=== PATIENT | female | born 1985 | race Caucasian/White ===

== ENCOUNTER 2020-05-09 18:00 | Inpatient (IN) ==
[2020-05-10] MEDS ORDERED: Azithromycin 500 MG in 0.9 % Sodium Chloride 250 ML IVPB ONE (09:17)
[2020-05-10] MEDS ORDERED: Famotidine 20 MG/2 ML VIAL IVP PRN (09:17)
[2020-05-10] MEDS ORDERED: Ondansetron 4 MG/2 ML VIAL IVP PRN (09:17)
[2020-05-10] MEDS ORDERED: *HR* FentaNYL (PF) 100 MCG/2 ML VIAL IVP PRN (09:17)
[2020-05-10] MEDS ORDERED: Lidocaine 1% 20 ML MDV ID PRN (09:17)
[2020-05-10] MEDS ORDERED: Metoclopramide 10 MG/2 ML VIAL IVP PRN (09:17)
[2020-05-10] MEDS ORDERED: Naloxone 0.4 MG/ML INJ IVP PRN (09:17)
[2020-05-10] MEDS ORDERED: miSOPROStoL 25 MCG TABLET VG PRN (09:23)
[2020-05-10] MEDS ORDERED: Ringers Solution, Lactated 1,000 ML IVC SCH (09:30)
[2020-05-10 10:10] LABS: Basophils % 0.2 %; Eosinophils % 0.7 %; Hematocrit 32.2 % (35.3-44.9); Hemoglobin 10.3 g/dL (11.5-15.4); Immature Granulocytes % 0.5 % (0-4); Lymphocytes % 16.9 %; Mean Corpuscular Hemoglobin 26.3 pg (28.0-33.3); Mean Corpuscular Volume 82.4 fL (83.0-100.0); Mean Platelet Volume 9.5 fL (9.4-12.4); Monocytes # 0.4 K/mcL (0.0-1.3); Monocytes % 6.6 %; Neutrophils # 4.4 K/mcL (1.6-8.9); Platelet Count 290 K/mcL (140-400); Red Blood Count 3.91 M/mcL (3.82-4.97); Red Cell Distribution Width 14.4 % (11.5-14.5); Segmented Neutrophils % 75.1 %; White Blood Count 5.8 K/mcL (4.3-11.1)
[2020-05-10 10:15] LABS: Amphetamine Screen,Urine Negative ng/mL (Cutoff=1000); Barbiturate Screen,Urine Negative ng/mL (Cutoff=200); Benzodiazepines Screen,Urine Negative ng/mL (Cutoff=200); Cannabinoid Screen,Urine Negative ng/mL (Cutoff = 50); Cocaine Screen,Urine Negative ng/mL (Cutoff= 300); Opiate Screen,Urine Negative ng/mL (Cutoff=300); Phencyclidine Screen,Urine Negative ng/mL (Cutoff=25)
[2020-05-10] MEDS ORDERED: miSOPROStoL 25 MCG TABLET PO PRN (10:37)
[2020-05-10] MEDS ORDERED: Oxytocin 20 units/ LR 1000 mL 20 UNIT/1,000 ML BAG IVC SCH (14:45)
[2020-05-10] MEDS ORDERED: *HR* FentaNYL (PF) 100 MCG/2 ML VIAL EP ONE (19:21)
[2020-05-10] MEDS ORDERED: EPHEDrine 50 MG/ML VIAL IVP PRN (19:21)
[2020-05-10] MEDS ORDERED: Ropivacaine/PF 0.2% 20 ML VIAL EP ONE (19:21)
[2020-05-10] MEDS ORDERED: Epidural Premix (fent/bupiv) 110 ML EP SCH (19:30)
[2020-05-10] MEDS ORDERED: *HR* FentaNYL (PF) 100 MCG/2 ML VIAL ONE (19:31)
[2020-05-10] MEDS ORDERED: Ropivacaine/PF 0.2% 20 ML VIAL ONE (19:31)
[2020-05-11] MEDS ORDERED: Measles/Mumps/Rubella Vacc 0.5 ML VIAL SQ PRN (03:05)
[2020-05-11] MEDS ORDERED: Benzocaine/Menthol 56 GM AEROSOL SPRAY TP PRN (03:05)
[2020-05-11] MEDS ORDERED: Oxytocin 20 units/ LR 1000 mL 20 UNIT/1,000 ML BAG IVC SCH (03:05)
[2020-05-11] MEDS ORDERED: Lanolin 7 G OINT...G. TP PRN (03:05)
[2020-05-11] MEDS ORDERED: *HR* HYDROcodone/Acet 5/325 mg TABLET PO PRN (03:05)
[2020-05-11] MEDS: Acetaminophen 325 MG TABLET PO SCH ×3 (03:36→15:33)
[2020-05-11] MEDS ORDERED: Preparation H Ointment 57 GM TUBE TP PRN (03:57)
[2020-05-11 05:00] LABS: Basophils % 0.1 %; Hematocrit 30.9 % (35.3-44.9); Hemoglobin 9.6 g/dL (11.5-15.4); Immature Granulocytes % 0.4 % (0-4); Mean Corpuscular HGB Conc 31.1 g/dL (31.6-35.5); Mean Corpuscular Hemoglobin 26.4 pg (28.0-33.3); Mean Corpuscular Volume 85.1 fL (83.0-100.0); Mean Platelet Volume 9.7 fL (9.4-12.4); Monocytes # 0.9 K/mcL (0.0-1.3); Monocytes % 5.4 %; Platelet Count 278 K/mcL (140-400); Red Blood Count 3.63 M/mcL (3.82-4.97); Red Cell Distribution Width 14.3 % (11.5-14.5); Segmented Neutrophils % 88.1 %
[2020-05-11 05:11] LABS: Neutrophils # 14.6 K/mcL (1.6-8.9); White Blood Count 16.6 K/mcL (4.3-11.1)
[2020-05-11] MEDS: Prenatal Vit/FA 1 EACH TABLET PO SCH (07:55)
[2020-05-11] MEDS: polyethylene glycoL 3350 17 GM POWD.PACK PO SCH (07:55)
[2020-05-11] MEDS: Ibuprofen 600 MG TABLET PO SCH ×2 (11:34→17:30)
[2020-05-12] MEDS: Acetaminophen 325 MG TABLET PO SCH ×2 (00:03→08:19)
[2020-05-12] MEDS: Ibuprofen 600 MG TABLET PO SCH (06:07)
[2020-05-12 07:55] VITALS: BP 116/77
[2020-05-12] MEDS: Prenatal Vit/FA 1 EACH TABLET PO SCH (08:19)
[2020-05-12] MEDS: polyethylene glycoL 3350 17 GM POWD.PACK PO SCH (08:21)
== END 2020-05-12 12:45 | disposition home or self-care (01) | DRG 768 ==
LOC: 1NENULAB 05-10 09:10 → 1NENUOBS 05-11 02:55
PROVIDERS: ADMIT Obstetrics & Gynecology; ATTEND Obstetrics & Gynecology